=== PATIENT | male | born 1950 | race Caucasian/White ===

== ENCOUNTER 2017-12-18 12:12 | Emergency (ER) | payer MEDICARE, MEDICAID ==
[~2017-12-18] VITALS: Ht 177.8 cm; Wt 100.3 kg
[~2017-12-18 12:12] MED LIST: ALBU8I INH; ASPI81TA82 PO; CITA-48 PO; DICY1TAB26 PO; DILT120C9 PO; FURO20 PO; HYDR-3129 PO; LINA145C PO; MIRA33502 PO; MULT-65 PO; PANT20 PO; RANI150 PO; REST30CA PO; SENN-29 PO; SYMB160A INH; ZOFR4TAB3 SL
[2017-12-18 12:14] VITALS: BP 186/88; PULSE 80; RESP 18; TEMP 97.6
[2017-12-18] MEDS ORDERED: ASPI-516 CHEW (12:40)
[2017-12-18] MEDS ORDERED: ALBU0.08 NEB (12:40)
[2017-12-18] MEDS ORDERED: ZANT300T PO (12:40)
[2017-12-18] MEDS ORDERED: FURO1TAB62 PO (12:40)
[2017-12-18] MEDS ORDERED: VENTAER INH (12:40)
[2017-12-18] MEDS ORDERED: HYDR-3366 PO (12:40)
[2017-12-18] MEDS ORDERED: LINA145C PO (12:40)
[2017-12-18] MEDS ORDERED: MIRA3350 PO (12:40)
[2017-12-18] MEDS ORDERED: DILT0.05 PO (12:40)
[2017-12-18] MEDS ORDERED: LISI30TA4 PO (12:40)
[2017-12-18] MEDS ORDERED: CITA20TA4 PO (12:40)
[2017-12-18] MEDS ORDERED: REST30CA PO (12:40)
[2017-12-18] MEDS ORDERED: COLA100C5 PO (12:40)
--- NOTE | 2017-12-18 13:08 | PD ---
HPI Chief Complaint: GI Complaint Time Seen by Provider: 12:53 Travel History International Travel<30 days: No Contact w/Intl Traveler<30days: No Traveled to known affect area: No History of Present Illness HPI This 67-year-old male is complaining of left lower quadrant pain. He has a history of diverticulitis and is concerned that he might be having it again. He has never had abdominal surgery. He does get constipated quite often and takes a lot of magnesium citrate. He was a heavy drinker until 9 years ago. Since he stopped drinking he says he gets frequent bouts of constipation. He does admit he was eating a lot of popcorn recently is not aware of fever or chills [facility] Past Medical History Anxiety: Yes Heart Rhythm Problems: Yes (SVT) Cardiovascular Problems: Yes (HAS HOME BP MACHINE 160/84) High Cholesterol: Yes (NO MEDS) Congestive Heart Failure: No COPD: Yes Diabetes: No Diminished Hearing: No Diverticulitis: Yes GERD: Yes Genitourinary: No Herniated Disk: Yes Hypertension: Yes Musculoskeletal: Yes (BULDGING DISCS, LEFT SHOULDER) Neurologic: No Reproductive: No Respiratory: Yes Immunizations Current: Yes Tetanus Vaccination: Unknown Influenza Vaccination: No ?: Not Past Surgical History Eye Surgery: Yes Other Surgery: Yes Social History Alcohol Use: No (DENIES; HX DOCUMENTED OF HEAVY USE) Tobacco Use: No (QUIT IN 2008, SMOKED FOR 40 YEARS) Substance Use: No Allergies-Medications (Allergen,Severity, Reaction): Coded Allergies: No Known Allergies (Verified Adverse Reaction, Unknown, 12/18/17) Reported Meds & Prescriptions Reported Meds & Active Scripts Active Reported Simvastatin 20 Mg Tab 20 Mg PO DAILY Lisinopril 30 Mg Tab 30 Mg PO DAILY Albuterol Neb (Albuterol Sulfate) 2.5 Mg/3 Ml Neb 2.5 Mg NEB Q4HR NEB PRN Restoril (Temazepam) 30 Mg Cap 30 Mg PO HS PRN Colace (Docusate Sodium) 100 Mg Capsule 100 Mg PO HS Miralax Powder (Polyethylene Glycol 3350 Powder) 17 Gm Powd 17 Gm PO BID Mix and dissolve one measuring cap-ful (17 grams) in water or juice. Zantac (Ranitidine HCl) 300 Mg Tab 300 Mg PO BID Linzess (Linaclotide) 145 Mcg Cap 145 Mcg PO DAILY Arminto (Hydrocodone-Acetaminophen) 10-325 Mg Tab 1 Tab PO Q6H PRN Lasix (Furosemide) 20 Mg Tab 20 Mg PO DAILY Diltiazem ER 24 HR 180 Mg Sharon 180 Mg PO DAILY Citalopram (Citalopram Hydrobromide) 20 Mg Tab 20 Mg PO DAILY Aspirin 81 Mg Chew 81 Mg CHEW DAILY Ventolin Hfa 18 GM Inh (Albuterol Sulfate) 90 Mcg/Act Aer 2 Puff INH Q4-6H PRN Review of Systems General / Constitutional: No: Fever, Chills Eyes: No: Diploplia, Blurred Vision HENT: No: Headaches Cardiovascular: No: Chest Pain or Discomfort Respiratory: No: Cough Gastrointestinal: Positive: Abdominal Pain, Constipation, No: Nausea, Vomiting , Diarrhea Genitourinary: No: Urgency, Frequency Musculoskeletal: No: Myalgias Skin: No Rash, No Itching Physical Exam Narrative GENERAL: Well-developed male SKIN: Focused skin assessment warm/dry. HEAD: Atraumatic. Normocephalic. EYES: Pupils equal and round. No scleral icterus. No injection or drainage. ENT: No nasal bleeding or discharge. Mucous membranes pink and moist. NECK: Trachea midline. No JVD. CARDIOVASCULAR: Regular rate and rhythm. No murmur appreciated. RESPIRATORY: No accessory muscle use. Clear to auscultation. Breath sounds equal bilaterally. GASTROINTESTINAL: Abdomen soft, non-tender, nondistended. Hepatic and splenic margins not palpable. There is some left lower quadrant tenderness without guarding or rigidity. No masses are felt MUSCULOSKELETAL: No obvious deformities. No clubbing. No cyanosis. No edema. NEUROLOGICAL: Awake and alert. No obvious cranial nerve deficits. Motor grossly within normal limits. Normal speech. PSYCHIATRIC: Appropriate mood and affect; insight and judgment normal. Data Data Last Documented VS Vital Signs Date Time Temp Pulse Resp B/P (MAP) Pulse Ox O2 Delivery O2 Flow Rate FiO2 12/18/17 15:51 12/18/17 14:51 87 18 97 12/18/17 12:14 97.6 Orders Orders Complete Blood Count With Diff (12/18/17 13:00) Comprehensive Metabolic Panel (12/18/17 13:00) Urinalysis - C+S If Indicated (12/18/17 13:00) Ct Abd/Pel W Iv Contrast(Rout) (12/18/17 13:00) Oral Contrast - Adult (12/18/17 13:11) Diatrizoate Liq (Md Fuentes Liq) (12/18/17 13:22) Magnesium (Mg) (12/18/17 13:15) Iohexol 350 Inj (Omnipaque 350 Inj) (12/18/17 14:44) Ed Discharge Order (12/18/17 15:49) Labs Laboratory Tests Test 12/18/17 13:15 White Blood Count 8.1 TH/MM3 Red Blood Count 4.91 MIL/MM3 Hemoglobin 15.6 GM/DL Hematocrit 44.8 % Mean Corpuscular Volume 91.4 FL Mean Corpuscular Hemoglobin 31.8 PG Mean Corpuscular Hemoglobin Concent 34.8 % Red Cell Distribution Width 12.5 % Platelet Count 228 TH/MM3 Mean Platelet Volume 9.3 FL Neutrophils (%) (Auto) 73.3 % Lymphocytes (%) (Auto) 13.3 % Monocytes (%) (Auto) 7.3 % Eosinophils (%) (Auto) 1.7 % Basophils (%) (Auto) 4.4 % Neutrophils # (Auto) 5.9 TH/MM3 Lymphocytes # (Auto) 1.1 TH/MM3 Monocytes # (Auto) 0.6 TH/MM3 Eosinophils # (Auto) 0.1 TH/MM3 Basophils # (Auto) 0.4 TH/MM3 CBC Comment DIFF FINAL Differential Comment Urine Color YELLOW Urine Turbidity CLEAR Urine pH 6.0 Urine Specific [place] 1.010 Urine Protein NEG mg/dL Urine Glucose (UA) NEG mg/dL Urine Ketones NEG mg/dL Urine Occult Blood NEG Urine Nitrite NEG Urine Bilirubin NEG Urine Urobilinogen 0.2 MG/DL Urine Leukocyte Esterase NEG Urine WBC 0-2 /hpf Microscopic Urinalysis Comment CULT NOT INDICATED Blood Urea Nitrogen 9 MG/DL Creatinine 0.92 MG/DL Random Glucose 117 MG/DL Total Protein 7.1 GM/DL Albumin 3.5 GM/DL Calcium Level 8.4 MG/DL Magnesium Level 2.3 MG/DL Alkaline Phosphatase 101 U/L Aspartate Amino Transf (AST/SGOT) 12 U/L Alanine Aminotransferase (ALT/SGPT) 25 U/L Total Bilirubin 1.8 MG/DL Sodium Level 139 MEQ/L Potassium Level 3.6 MEQ/L Chloride Level 107 MEQ/L Carbon Dioxide Level 26.0 MEQ/L Anion Gap 6 MEQ/L Estimat Glomerular Filtration Rate 82 ML/MIN MDM Medical Decision Making Medical Screen Exam Complete: Yes Emergency Medical Condition: Yes Medical Record Reviewed: Yes Differential Diagnosis Differential includes diverticulitis, constipation, nonspecific abdominal pain Narrative Course Blood work and CT scan have been ordered. Disposition will be determined by oncoming physician Joseph Carey MD December 18, 2017 13:08
[2017-12-18] MEDS ORDERED: DIATRIZOATE MEGLUM/DIATRIZOATE SOD 9 ML CUP ONE (13:22)
[2017-12-18] MEDS ORDERED: SIMV20TA PO (13:24)
[2017-12-18 13:28] LABS: AUTOMATED NEUTROPHIL # 5.9 TH/MM3 (1.8-7.7); BASOPHIL # 0.4 TH/MM3 (0-0.2); BASOPHIL % 4.4 % (0.0-2.0); EOSINOPHIL # 0.1 TH/MM3 (0-0.4); EOSINOPHIL % 1.7 % (0.0-4.0); HEMATOCRIT 44.8 % (39.0-51.0); HEMOGLOBIN 15.6 GM/DL (13.0-17.0); LYMPH % 13.3 % (9.0-44.0); LYMPHOCYTE # 1.1 TH/MM3 (1.0-4.8); MEAN CELL VOLUME 91.4 FL (80.0-100.0); MEAN CORPUSCULAR HEMOGLOBIN 31.8 PG (27.0-34.0); MEAN CORPUSCULAR HGB CONC 34.8 % (32.0-36.0); MEAN PLATELET VOLUME 9.3 FL (7.0-11.0); MONO % 7.3 % (0.0-8.0); MONOCYTE # 0.6 TH/MM3 (0-0.9); NEUT % 73.3 % (16.0-70.0); PLATELET COUNT 228 TH/MM3 (150-450); RED BLOOD COUNT 4.91 MIL/MM3 (4.50-5.90); RED CELL DISTRIBUTION WIDTH 12.5 % (11.6-17.2); WHITE BLOOD COUNT 8.1 TH/MM3 (4.0-11.0)
[2017-12-18 13:38] LABS: CHLORIDE 107 MEQ/L (98-107); SODIUM (NA) 139 MEQ/L (136-145)
[2017-12-18 13:41] LABS: BILIRUBIN, URINE NEG (NEG); BLOOD, URINE NEG (NEG); CALCIUM 8.4 MG/DL (8.5-10.1); GLUCOSE,URINE NEG (NEG); KETONE, URINE NEG (NEG); NITRITE,URINE NEG (NEG); URINE COLOR YELLOW (YELLW/STRAW); URINE LEUKOCYTE ESTERASE NEG (NEG)
[2017-12-18 13:42] LABS: ALBUMIN 3.5 GM/DL (3.4-5.0); BLOOD UREA NITROGEN 9 MG/DL (7-18); GLUCOSE,RANDOM 117 MG/DL (74-106); MAGNESIUM 2.3 MG/DL (1.5-2.5)
[2017-12-18 13:45] LABS: ALT (GPT) 25 U/L (12-78); AST (GOT) 12 U/L (15-37); CREATININE 0.92 MG/DL (0.60-1.30); GLOMERULAR FILTRATION RATE 82 ML/MIN (>89)
[2017-12-18 13:46] LABS: TOTAL BILIRUBIN ADULT 1.8 MG/DL (0.2-1.0); TOTAL PROTEIN 7.1 GM/DL (6.4-8.2)
[2017-12-18 13:48] LABS: ALKALINE PHOSPHATASE 101 U/L (45-117)
[2017-12-18 13:49] LABS: WBC, URINE 0-2 /hpf (0-5)
[2017-12-18] MEDS ORDERED: IOHEXOL 350 MG/ML 10 ML VIAL (for RAD DIAG) IVCONTRAST ONE (14:44)
[2017-12-18 14:51] VITALS: BP 168/75; PULSE 87; RESP 18; O2SAT 97
--- NOTE | 2017-12-18 15:27 | RADRPT ---
EXAM DATE/TIME: 12/18/2017 14:34 [place] COMPARISON: No previous studies available for comparison. INDICATIONS : Left lower quadrant pain. Constipation x 4 weeks. IV CONTRAST: 85 cc Omnipaque 350 (iohexol) IV ORAL CONTRAST: Prescribed oral contrast ingested. RADIATION DOSE: 20.91 CTDIvol (mGy) MEDICAL HISTORY : Gastroesophageal reflux disease. Chronic obstructive pulmonary disease. Diverticulitis.Hypertension. SURGICAL HISTORY : None. ENCOUNTER: Initial ACUITY: 1 month PAIN SCALE: 4/10 LOCATION: Left lower quadrant TECHNIQUE: Volumetric scanning of the abdomen and pelvis was performed. Using automated exposure control and ad justment of the mA and/or kV according to patient size, radiation dose was kept as low as reasonably achievable to obtain optimal diagnostic quality images. DICOM format image data is available electro nically for review and comparison. FINDINGS: LOWER LUNGS: The visualized lower lungs are clear. LIVER: Homogeneous density without lesion. There is no dilation of the biliary tree. No calcified gallston es. SPLEEN: Normal size without lesion. PANCREAS: Within normal limits. KIDNEYS: Normal in size and shape. There is no mass, stone or hydronephrosis. There is an incidental 5 mm low density lesion in the right upper pole kidney that is too small to characterize. ADRENAL GLANDS: Within normal limits. VASCULAR: There is no aortic aneurysm. There is severe atherosclerotic disease. BOWEL/MESENTERY: The stomach, small bowel, and colon demonstrate no acute abnormality. There is no free intraperitone al air or fluid. Moderate sigmoid diverticulosis without wall thickening or inflammation. ABDOMINAL WALL: Within normal limits. RETROPERITONEUM: There is no lymphadenopathy. BLADDER: No wall thickening or mass. REPRODUCTIVE: Within normal limits. INGUINAL: There is no lymphadenopathy or hernia. MUSCULOSKELETAL: There are degenerative changes of the lumbar spine. CONCLUSION: 1. No acute abnormality is identified to explain the clinical symptoms. There is sigmoid diverticulos is but no inflammatory changes are present. 2. Severe atherosclerotic disease. Paul Zazueta MD on December 18, 2017 at 15:21 Board Certified Radiologist. This report was verified electronically.
--- NOTE | 2017-12-18 15:49 | PD ---
Physical Exam Narrative Patient was seen by ED physician and signed out to me. Data Data Last Documented VS Vital Signs Date Time Temp Pulse Resp B/P (MAP) Pulse Ox O2 Delivery O2 Flow Rate FiO2 12/18/17 14:51 87 18 168/75 (106) 97 12/18/17 12:14 97.6 Orders Orders Complete Blood Count With Diff (12/18/17 13:00) Comprehensive Metabolic Panel (12/18/17 13:00) Urinalysis - C+S If Indicated (12/18/17 13:00) Ct Abd/Pel W Iv Contrast(Rout) (12/18/17 13:00) Oral Contrast - Adult (12/18/17 13:11) Diatrizoate Liq ( Gastroibeth Liq) (12/18/17 13:22) Magnesium (Mg) (12/18/17 13:15) Iohexol 350 Inj (Omnipaque 350 Inj) (12/18/17 14:44) Labs Laboratory Tests Test 12/18/17 13:15 White Blood Count 8.1 TH/MM3 Red Blood Count 4.91 MIL/MM3 Hemoglobin 15.6 GM/DL Hematocrit 44.8 % Mean Corpuscular Volume 91.4 FL Mean Corpuscular Hemoglobin 31.8 PG Mean Corpuscular Hemoglobin Concent 34.8 % Red Cell Distribution Width 12.5 % Platelet Count 228 TH/MM3 Mean Platelet Volume 9.3 FL Neutrophils (%) (Auto) 73.3 % Lymphocytes (%) (Auto) 13.3 % Monocytes (%) (Auto) 7.3 % Eosinophils (%) (Auto) 1.7 % Basophils (%) (Auto) 4.4 % Neutrophils # (Auto) 5.9 TH/MM3 Lymphocytes # (Auto) 1.1 TH/MM3 Monocytes # (Auto) 0.6 TH/MM3 Eosinophils # (Auto) 0.1 TH/MM3 Basophils # (Auto) 0.4 TH/MM3 CBC Comment DIFF FINAL Differential Comment Urine Color YELLOW Urine Turbidity CLEAR Urine pH 6.0 Urine Specific [place] 1.010 Urine Protein NEG mg/dL Urine Glucose (UA) NEG mg/dL Urine Ketones NEG mg/dL Urine Occult Blood NEG Urine Nitrite NEG Urine Bilirubin NEG Urine Urobilinogen 0.2 MG/DL Urine Leukocyte Esterase NEG Urine WBC 0-2 /hpf Microscopic Urinalysis Comment CULT NOT INDICATED Blood Urea Nitrogen 9 MG/DL Creatinine 0.92 MG/DL Random Glucose 117 MG/DL Total Protein 7.1 GM/DL Albumin 3.5 GM/DL Calcium Level 8.4 MG/DL Magnesium Level 2.3 MG/DL Alkaline Phosphatase 101 U/L Aspartate Amino Transf (AST/SGOT) 12 U/L Alanine Aminotransferase (ALT/SGPT) 25 U/L Total Bilirubin 1.8 MG/DL Sodium Level 139 MEQ/L Potassium Level 3.6 MEQ/L Chloride Level 107 MEQ/L Carbon Dioxide Level 26.0 MEQ/L Anion Gap 6 MEQ/L Estimat Glomerular Filtration Rate 82 ML/MIN [facility] Supervised Visit with SAMANTHA: No Interpretation(s) Last Impressions Abdomen/Pelvis CT 12/18/17 1300 Signed Impressions: Service Date/Time: Monday, December 18, 2017 14:34 - CONCLUSION: 1. No acute abnormality is identified to explain the clinical symptoms. There is sigmoid diverticulosis but no inflammatory changes are present. 2. Severe atherosclerotic disease. Paul Zazueta MD 1542 PM. CBC within normal limits. CMP within normal limits. Total bili 1.8. UA is negative. Diagnosis Primary Impression: Abdominal colic Referrals: REED AVILES M.D. (PCP) Patient Instructions: General Instructions Departure Forms: Tests/Procedures Additional Instruction: Follow-up with personal physician and marquetry worker. [id number] stool softener as needed. Return if worse. Med/Other Pt SpecificInfo: No Change to Meds Disposition: 01 DISCHARGE HOME Condition: Stable Augustine Mullen MD December 18, 2017 15:49
== END 2017-12-18 16:04 | disposition home or self-care (01) ==
LOC: PHED 12:12
DX: R10.84 Generalized abdominal pain (principal); K59.00 Constipation, unspecified; F41.9 Anxiety disorder, unspecified; I47.1 Supraventricular tachycardia; E78.00 Pure hypercholesterolemia, unspecified; J44.9 Chronic obstructive pulmonary disease, unspecified; K21.9 Gastro-esophageal reflux disease without esophagitis; I10 Essential (primary) hypertension; Z79.82 Long term (current) use of aspirin
CPT/HCPCS: 74177; 80053; 81001; 83735; 85025; 99285; Q9963; Q9967